=== PATIENT | female | born 1985 | race Caucasian/White ===

== ENCOUNTER 2020-12-17 14:10 | Outpatient (CLI) | payer MEDICAID, SELFPAY ==
[2020-12-17] VITALS (17 sets, daily range): BP systolic 134–176; BP diastolic 70–88; PULSE 72–91; RESP 16; TEMP 36.3–36.8; O2SAT 98; BMI 28.2
[2020-12-17] MEDS: dextrose 5%-lactated ringers 1,000 ML 125 ML IV (16:01)
--- NOTE | 2020-12-17 17:51 | P.SS_ITS ---
Short Stay Summary Providers Date of Admit/Discharge: 12/17/20 Attending Provider: Rolando Javier MD Primary Care Provider: Genna Nguyễn MD Chief Complaint: NON STRESS TEST FOR LOW BPP HPI History of Present Illness Moon Donovan is a 35 year old female who has been followed by this physician as well as physicians in [place] for a with multiple anomalies. She has today 36 weeks and 1 day. She is a 4 para 2 female. The fetus is apparently a trisomy 21 infant. 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 The plan has been to induce this patient this secondary to blood pressure creeping up and amniotic fluid index going down. The patient was seen in the office today where she had a biophysical profile which was 6 out of 8 with amniotic fluid index of 6.3 and a grade 3 placenta. This physician called her physician in [place] and dis cussed with him and they recommended getting a nonstress test. Nonstress test has been somewhat equivocal but not a nonreassuring heart tone strip. 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 The patient has been having contractions about every 6 to 8 minutes with occasional variables. Overall the variability has been pretty good but not outstanding. She is feeling some of her contractions but not much. Vaginal exam earlier showed her to be about 3 cm dilated and about 80+ percent effaced. The maternal transport team from [place] is presently on the way and should be here any minute. It should be noted that she has had intermittent care prior to finding the abnormalities on ultrasound. She is also not kept all of her appointments since that time. Maternal blood type is B+ with antibody screen negative. Group B strep has not been done and Covid testing was done today and is pending. Review of Systems Const: Denies: fever(s), chills or change in weight ENMT: Denies: throat pain Card: Denies: chest pain or edema Resp: Denies: dyspnea, productive cough or non-productive cough GI: Denies: abdominal pain, nausea or vomiting : Reports: amenorrhea (She is approximately 36 weeks .); Denies: vaginal bleeding or vaginal discharge Neuro: Denies: headache(s) or weakness in extremities Psych: Reports: anxiety Home Meds/Allergies Home Medications and Allergies Home Medications Medication Instructions Recorded Confirmed Type omeprazole 1 tab PO DAILY 12/17/20 12/17/20 History [id number] 6-dha 1 tab PO DAILY 12/17/20 12/17/20 History Allergies Allergy/AdvReac Type Severity Reaction Status Date / Time Penicillins Allergy ALGY-Hives Verified 12/17/20 15:48 PFSH Acute Female Reproductive History: : 4 Vitals/I&O/Wt Last Vital Signs Temp 97.3 F L 12/17/20 16:44 Pulse 82 12/17/20 17:41 Resp 16 12/17/20 14:41 BP 144/77 12/17/20 17:41 Pulse Ox 98 12/17/20 16:48 Weight last 48 hrs Weight 86.636 kg Physical Exam Const: COMMON NORMALS: no acute distress, healthy appearing and alert GENERAL APPEARANCE: cooperative and comfortable Resp: COMMON NORMALS: normal respiratory effort, No retractions, No use of accessory muscles and clear to auscultation bilaterally AUSCULTATION: clear to auscultation bilaterally Cardio: COMMON NORMALS: regular rate and regular rhythm RATE: regular rate RHYTHM: regular rhythm GI: COMMON NORMALS: Soft to palpation, non-tender and no masses (She is .) PALPATION: Yes Soft to palpation Extremity: COMMON NORMALS: full ROM, capillary refill normal and no pedal edema (Trace pedal edema.) Neuro: COMMON NORMALS: moves all extremities, no focal motor deficits and no sensory deficits noted SENSORIUM/ORIENTATION: Yes alert Psych: COMMON NORMALS: mental status grossly normal APPEARANCE: Yes grossly normal ATTITUDE: Yes calm (Slightly anxious.) Hospital Course Admission Diagnoses Abnormal biophysical profile of 6 out of 8. Grade 3 placenta and placed in the hospital for nonstress testing. Hospital Course The patient was placed in the hospital OB department for nonstress testing. Th at testing was equivocal and decision had been made after discussion with the physicians in [place] to proceed with transfer to [place]. They presently have the maternal- medicine team flying via fixed wing to [place]. The patient has done well since she has been here. She is having intermittent contractions but is not an active labor. Discharge Summary Patient has done well since admission. heart tones have demonstrated fair variability with occasional variable decelerations but no significant distress noted. The patient continues to be fairly comfortable. She is somewhat anxious and is very interested in getting things moving. Diagnoses at Discharge Discharge Diagnosis (1) 36 weeks gestation of : Status: Acute (2) abnormality affecting management of mother: Status: Acute (3) Placental insufficiency affecting management of mother: Status: Acute Permanent problem details: Patient has some placental insufficiency and requires delivery of the . However, due to known cardiac anomalies and other defects recommendation is to go to [place] for delivery. Presently they are in route to pick her up and bring her to [place] via maternal- medicine transport. (4) cardiac anomaly complicating , antepartum: Status: Acute Discharge Plan Discharge Patient Disposition: Home Prescriptions: No Action omeprazole 1 tab PO DAILY RF: 0 [id number] 6-dha 1 tab PO DAILY RF: 0 Attestations Medical Necessity Statement*: This patient required admission the hospital for the above-stated reasons. She will be here less than 2 midnights. Time Spent in Patient Care*: greater than 30 min Specific Discharge Activities: Specific discharge activities: educating patient, discussing with pcp/other providers, documenting/other paperwork and evaluating patient/reviewing data Status at Discharge: Cognitive status at discharge: cognitively intact , Quality Metrics Clinical Quality Measures: During this hospital stay, did patient experience: None Coding Level of Care Code Acute Senior Animator for g Fwd Exam Detailed Diagnoses 36 weeks gestation of Z3A.36 abnormality affecting management of mother O35.9XX0 Placental insufficiency affecting management of mother O36.5190 cardiac anomaly complicating , antepartum O35.8XX0
== END 2020-12-17 18:12 | disposition intermediate care facility (04) ==
LOC: OPOB 14:17 → OBGYN 14:19
PROVIDERS: PCP Family Medicine; Visit Provider Family Medicine
DX: O35.9XX0 Maternal care for (suspected) fetal abnormality and damage, unspecified, not applicable or unspecified (principal); O36.5193 Maternal care for known or suspected placental insufficiency, unspecified trimester, fetus 3; O35.8XX0 Maternal care for other (suspected) fetal abnormality and damage, not applicable or unspecified; Z3A.36 36 weeks gestation of pregnancy
CPT/HCPCS: 12345; 59025; 96360

== ENCOUNTER → 2021-06-13 14:19 | Outpatient (BNVA) | payer MEDICAID, SELFPAY | PROVIDERS: PCP Family Medicine; Visit Provider Psychiatry & Neurology Psychiatry | DX: F41.1 Generalized anxiety disorder (principal); F33.2 Major depressive disorder, recurrent severe without psychotic features; F10.21 Alcohol dependence, in remission; F12.21 Cannabis dependence, in remission; F15.21 Other stimulant dependence, in remission; F17.210 Nicotine dependence, cigarettes, uncomplicated | CPT/HCPCS: 99204 ==

== ENCOUNTER → 2021-08-27 15:43 | Outpatient (BNVA) | payer MEDICAID, SELFPAY | PROVIDERS: PCP Family Medicine; Visit Provider Psychiatry & Neurology Psychiatry | DX: F33.2 Major depressive disorder, recurrent severe without psychotic features (principal); F41.1 Generalized anxiety disorder; F17.210 Nicotine dependence, cigarettes, uncomplicated; F15.21 Other stimulant dependence, in remission; F12.21 Cannabis dependence, in remission; F10.21 Alcohol dependence, in remission | CPT/HCPCS: 99214 ==

== ENCOUNTER → 2022-01-17 10:15 | Outpatient (BNVA) | payer MEDICAID, SELFPAY | PROVIDERS: PCP Family Medicine; Visit Provider Psychiatry & Neurology Psychiatry | DX: F33.2 Major depressive disorder, recurrent severe without psychotic features (principal); F41.1 Generalized anxiety disorder; F17.210 Nicotine dependence, cigarettes, uncomplicated; F15.21 Other stimulant dependence, in remission; F12.21 Cannabis dependence, in remission; F10.21 Alcohol dependence, in remission | CPT/HCPCS: 99214 ==

== ENCOUNTER → 2022-04-15 14:04 | Outpatient (BNVA) | payer MEDICAID, SELFPAY | PROVIDERS: PCP Family Medicine; Visit Provider Psychiatry & Neurology Psychiatry | DX: F33.2 Major depressive disorder, recurrent severe without psychotic features (principal); F41.1 Generalized anxiety disorder; F17.210 Nicotine dependence, cigarettes, uncomplicated; F15.21 Other stimulant dependence, in remission; F12.21 Cannabis dependence, in remission; F10.21 Alcohol dependence, in remission | CPT/HCPCS: 99213 ==

== ENCOUNTER → 2022-05-24 18:14 | Outpatient (BNVA) | payer MEDICAID, SELFPAY | PROVIDERS: Visit Provider Registered Nurse Neonatal Intensive Care | DX: M25.531 Pain in right wrist (principal) | CPT/HCPCS: 73110 ==

== ENCOUNTER → 2022-08-19 15:15 | Outpatient (BNVA) | payer MEDICAID, SELFPAY | PROVIDERS: Visit Provider Registered Nurse Neonatal Intensive Care | DX: J02.9 Acute pharyngitis, unspecified (principal); R50.9 Fever, unspecified; J06.9 Acute upper respiratory infection, unspecified | CPT/HCPCS: 87426; 87880 ==